=== PATIENT | female | born 1995 | race Caucasian/White ===

== ENCOUNTER 2023-01-05 19:18 | Outpatient (OUT) | payer OTHER, SELFPAY ==
--- NOTE | 2023-01-05 19:27 | US_ITS ---
The [address] [address] Patient Name: BESS BURLESON MRN: [id number] date: 1995 Sex: F Assigned Patient Location: US Current Patient Location: US Accession/Order Number: [id number] Exam Date: 01/05/2023 19:27 Report Date: 01/06/2023 15:35 At the request of: SHAYAN MAJOR Procedure: US OB incomplete anatomy EXAMINATION: US OB incomplete anatomy HISTORY: Z34.92 REPEAT TO CLEAR CARDIAC OUTFLOW, AND HARD PALATE COMPARISON: Ultrasound anatomy 12/08/2022 FINDINGS: Presentation: Cephalic Amniotic fluid: Subjectively normal Heart rate: 144 bpm Anatomy: Unremarkable cardiac outflow tracts. Hard palate could not be evaluated. GA: 25 weeks 3 days SHELLEY: 04/17/2023 IMPRESSION: 1. Single live intrauterine . 2. Adequate visualization of the cardiac outflow tracts; no appreciable abnormality. 3. Hard palate could not be evaluated due to position. Electronically authenticated by: ED SIMS Date: 01/06/2023 15:35
== END 2023-01-05 19:19 ==
PROVIDERS: Visit Provider Obstetrics & Gynecology
DX: Z34.92 Encounter for supervision of normal pregnancy, unspecified, second trimester (principal)
CPT/HCPCS: 76815

== ENCOUNTER 2023-01-25 15:41 | Outpatient (RCR) | payer OTHER, SELFPAY ==
[2023-01-23 13:23] LABS: Glucose 1 Hour 184 mg/dL
[2023-01-25 15:47] VITALS: BP 127/85; PULSE 105; RESP 16; TEMP 36.5; O2SAT 97
[2023-01-25] MEDS: RHO(D) IMMUNE GLOBULIN 1,500 UNIT SYRINGE 1500 UNIT IM (16:34)
--- NOTE | 2023-01-25 16:49 | PC.NURSE ---
Pt is here for RhoGam injection, she had blood work done today which confirmed she was A Negative, paperwork completed and injection given. Patient tolerated this well and denies any complaints, she was discharged home.
== END 2023-01-29 23:59 | disposition home or self-care (01) ==
LOC: INF 15:41
PROVIDERS: Visit Provider Obstetrics & Gynecology
DX: O26.893 Other specified pregnancy related conditions, third trimester (principal); Z67.91 Unspecified blood type, Rh negative
CPT/HCPCS: 36415; 82950; 86850; 86900; 86901; 96372; J2790

== ENCOUNTER 2023-01-30 10:09 | Outpatient (OUT) | payer OTHER, SELFPAY ==
[2023-01-30 10:36] LABS: Glucose Fasting 103 mg/dL (74-106)
[2023-01-30 11:51] LABS: Glucose 1 Hour 215 mg/dL
[2023-01-30 13:07] LABS: Glucose 2 Hour 178 mg/dL
[2023-01-30 14:16] LABS: Glucose 3 Hour 140 mg/dL
== END 2023-01-30 10:10 | disposition home or self-care (01) ==
LOC: LAB 10:09
PROVIDERS: Visit Provider Obstetrics & Gynecology
DX: R73.02 Impaired glucose tolerance (oral) (principal)
CPT/HCPCS: 36415; 82951; 82952

== ENCOUNTER 2023-02-16 14:37 | Outpatient (OUT) | payer OTHER, SELFPAY ==
--- NOTE | 2023-02-16 14:40 | US_ITS ---
[address] [address] Patient Name: BESS BURLESON MRN: [id number] date: 1995 Sex: F Assigned Patient Location: US Current Patient Location: US Accession/Order Number: [id number] Exam Date: 02/16/2023 14:41 Report Date: 02/16/2023 18:30 At the request of: SHAYAN MAJOR Procedure: US OB growth EXAMINATION: US OB growth HISTORY: GDM COMPARISON: No relevant comparison available. FINDINGS: #: 1.0 Presentation: Cephalic presentation, longitudinal lie Heart Rate: 153.0 bpm Amniotic Fluid Volume: 11.3 cm cm Maximum Vertical Pocket: 5.2 cm cm 0.0 cm cm 1.5 cm cm 4.6 cm cm BIOMETRY: BPD: 8.1 cm cm; 32 weeks 3 days, 71% HC: 30.5 cm cm; 33 weeks 6 days, 80% AC: 29.5 cm cm; 33 weeks 4 days, 94 % FL: 6.4 cm cm; 33 weeks 0 days, 78% EFW: 4 lbs. 12 oz., 2162 g pounds, 92%by AUA, FL/AC: 21.6 FL/BPD: 79.0 HC/AC: 1.0 GESTATIONAL AGE: SHELLEY by EDC: 31 weeks 3 days Age by EDC: 04/17/2023 Ultrasound Age: 33 weeks 2 days SHELLEY by US: 04/04/2023 US/US OB growth IMPRESSION: Normal interval growth Electronically authenticated by: BYRON ORTEGA Date: 02/16/2023 18:30
== END 2023-02-16 14:38 | disposition home or self-care (01) ==
LOC: US 14:37
PROVIDERS: Visit Provider Obstetrics & Gynecology
DX: Z86.32 Personal history of gestational diabetes (principal); Z36.2 Encounter for other antenatal screening follow-up
CPT/HCPCS: 76816

== ENCOUNTER 2023-02-25 15:41 | Outpatient (OUT) | payer OTHER, SELFPAY | END 2023-02-25 15:42 | disposition home or self-care (01) | LOC: CR 15:41 | PROVIDERS: Visit Provider Obstetrics & Gynecology | DX: Z71.3 Dietary counseling and surveillance (principal); O24.419 Gestational diabetes mellitus in pregnancy, unspecified control; Z3A.00 Weeks of gestation of pregnancy not specified | CPT/HCPCS: G0108 ==

== ENCOUNTER 2023-02-27 13:20 | Outpatient (OUT) | payer OTHER, SELFPAY ==
--- NOTE | 2023-02-27 13:37 | US_ITS ---
[address] [address] Patient Name: BESS BURLESON MRN: [id number] date: 1995 Sex: F Assigned Patient Location: US Current Patient Location: US Accession/Order Number: [id number] Exam Date: 02/27/2023 13:50 Report Date: 03/01/2023 15:53 At the request of: JOSE CRUZ WHITE Procedure: US OB BPP w non-stress EXAMINATION: US OB BPP w non-stress HISTORY: EXCESSIVE GROWTH AFFECTING O36.63X0 COMPARISON: Ultrasound OB growth 02/16/2023 TECHNIQUE: Ultrasound biophysical profile was performed in the radiology department. BREATHING MOVEMENTS: 2.0 GROSS BODY MOVEMENTS: 2.0 TONE: 2.0 QUALITATIVE AMNIOTIC FLUID VOLUME: 2.0 PRESENTATION: CEPHALIC HEART RATE: 142.1 bpm bpm. AMNIOTIC FLUID VOLUME: 14.0 cm GESTATIONAL AGE: 33 weeks 0 days CONCLUSION: Total biophysical profile score 8.0. Electronically authenticated by: ED SIMS Date: 03/01/2023 15:53
[2023-02-27 13:38] VITALS: BP 120/90; PULSE 95; TEMP 36.1
== END 2023-02-27 14:31 | disposition home or self-care (01) ==
LOC: US 13:24 → FBC 13:25
PROVIDERS: Visit Provider Obstetrics & Gynecology
DX: O36.63X0 Maternal care for excessive fetal growth, third trimester, not applicable or unspecified (principal); Z3A.33 33 weeks gestation of pregnancy
CPT/HCPCS: 76818

== ENCOUNTER 2023-03-04 10:46 | Outpatient (OUT) | payer OTHER, SELFPAY ==
--- NOTE | 2023-03-04 10:48 | US_ITS ---
[address] [address] Patient Name: BESS BURLESON MRN: [id number] date: 1995 Sex: F Assigned Patient Location: US Current Patient Location: US Accession/Order Number: [id number] Exam Date: 03/04/2023 10:55 Report Date: 03/04/2023 19:09 At the request of: SHAYAN MAJOR Procedure: US OB growth EXAMINATION: US OB growth HISTORY: EXCESSIVE GROWTH O36.63X0 COMPARISON: Ultrasound OB growth 02/16/2023 FINDINGS: Heart Rate: 165.0 bpm Number: 1.0 Position: CEPHALIC Amniotic Fluid Volume: 14.5 cm Maximum Vertical Pocket: 8.1 cm BIOMETRY: BPD: 8.6 cm cm; 34 weeks 3 days; 69% HC: 31.8 cmcm; 35 weeks 5 days; 66% AC: 32.2 cm cm; 36 weeks 1 days; >97% FL: 6.8 cm cm; 35 weeks 0 days; 75% EFW: 2721.9 grams; 92% FL/AC: 21.2 FL/BPD: 79.8 HC/AC: 1.0 GESTATIONAL AGE: Age by EDC: 33 weeks 5 days SHELLEY by EDC: 04/17/2023 Age by US: 35 weeks 2 days SHELLEY by US: 04/06/2023 US/US OB growth IMPRESSION: 1. Single live intrauterine with growth detailed above. 2. Abdominal circumference is greater than 97th percentile. Electronically authenticated by: ED SIMS Date: 03/04/2023 19:09
== END 2023-03-04 10:47 | disposition home or self-care (01) ==
LOC: US 10:46
PROVIDERS: Visit Provider Obstetrics & Gynecology
DX: O36.63X0 Maternal care for excessive fetal growth, third trimester, not applicable or unspecified (principal); Z86.32 Personal history of gestational diabetes; Z36.2 Encounter for other antenatal screening follow-up; Z3A.35 35 weeks gestation of pregnancy
CPT/HCPCS: 76816

== ENCOUNTER 2023-03-06 13:09 | Outpatient (OUT) | payer OTHER, SELFPAY ==
--- NOTE | 2023-03-06 13:05 | US_ITS ---
[address] [address] Patient Name: BESS BURLESON MRN: [id number] date: 1995 Sex: F Assigned Patient Location: US Current Patient Location: Accession/Order Number: [id number] Exam Date: 03/06/2023 13:06 Report Date: 03/08/2023 16:23 At the request of: SHAYAN MAJOR Procedure: US OB BPP w non-stress EXAMINATION: US OB BPP w non-stress HISTORY: Excessive growth COMPARISON: Ultrasound OB biophysical 02/27/2023 TECHNIQUE: Ultrasound biophysical profile was performed in the radiology department. BREATHING MOVEMENTS: 2.0 GROSS BODY MOVEMENTS: 2.0 TONE: 2.0 QUALITATIVE AMNIOTIC FLUID VOLUME: 2.0 PRESENTATION: CEPHALIC HEART RATE: 166.7 bpm bpm. AMNIOTIC FLUID VOLUME: 13.6 cm GESTATIONAL AGE: 34 weeks 0 days CONCLUSION: Total biophysical profile score 8.0. Electronically authenticated by: ED SIMS Date: 03/08/2023 16:23
[2023-03-06 13:26] VITALS: BP 123/58; PULSE 97
== END 2023-03-06 14:09 | disposition home or self-care (01) ==
LOC: US 13:09 → FBC 13:09
PROVIDERS: Visit Provider Obstetrics & Gynecology
DX: O36.63X0 Maternal care for excessive fetal growth, third trimester, not applicable or unspecified (principal); Z3A.34 34 weeks gestation of pregnancy
CPT/HCPCS: 76818

== ENCOUNTER 2023-03-13 07:45 | Outpatient (OUT) | payer OTHER, SELFPAY ==
--- NOTE | 2023-03-13 12:51 | US_ITS ---
[address] [address] Patient Name: BESS BURLESON MRN: [id number] date: 1995 Sex: F Assigned Patient Location: US Current Patient Location: US Accession/Order Number: [id number] Exam Date: 03/13/2023 13:00 Report Date: 03/14/2023 02:06 At the request of: SHAYAN MAJOR Procedure: US OB BPP w non-stress EXAMINATION: US OB BPP w non-stress HISTORY: Excessive growth in third trimester O36.63X0 COMPARISON: Ultrasound biophysical 03/06/2023 TECHNIQUE: Ultrasound biophysical profile was performed in the radiology department. BREATHING MOVEMENTS: 2.0 GROSS BODY MOVEMENTS: 2.0 TONE: 2.0 QUALITATIVE AMNIOTIC FLUID VOLUME: 2.0 PRESENTATION: Cephalic HEART RATE: 158.8 bpm bpm. AMNIOTIC FLUID VOLUME: 12.3 cm GESTATIONAL AGE: 35 weeks 0 days CONCLUSION: Total biophysical profile score 8.0. Electronically authenticated by: ED SIMS Date: 03/14/2023 02:06
[2023-03-13 13:20] VITALS: BP 118/68; PULSE 95
== END 2023-03-13 13:49 | disposition home or self-care (01) ==
LOC: US 07:49 → FBC 13:02
PROVIDERS: Visit Provider Obstetrics & Gynecology Gynecology
DX: O36.63X0 Maternal care for excessive fetal growth, third trimester, not applicable or unspecified (principal); Z86.32 Personal history of gestational diabetes; Z3A.35 35 weeks gestation of pregnancy
CPT/HCPCS: 76818

== ENCOUNTER 2023-03-24 12:09 | Outpatient (REF) | payer OTHER, SELFPAY | END 2023-03-24 12:10 | disposition home or self-care (01) | LOC: LAB 12:09 | PROVIDERS: Visit Provider Obstetrics & Gynecology | DX: Z34.93 Encounter for supervision of normal pregnancy, unspecified, third trimester (principal) | CPT/HCPCS: 87081 ==

== ENCOUNTER 2023-03-27 13:00 | Outpatient (OUT) | payer OTHER, SELFPAY ==
--- NOTE | 2023-03-27 13:16 | US_ITS ---
[address] [address] Patient Name: BESS BURLESON MRN: [id number] date: 1995 Sex: F Assigned Patient Location: [facility] Current Patient Location: Accession/Order Number: [id number] Exam Date: 03/27/2023 13:20 Report Date: 03/29/2023 08:18 At the request of: SHAYAN MAJOR Procedure: US OB BPP w non-stress EXAMINATION: US OB BPP w non-stress HISTORY: gestational diabetes COMPARISON: No relevant comparison available. TECHNIQUE: Ultrasound biophysical profile was performed in the radiology department. FINDINGS: BREATHING MOVEMENTS: 2.0 GROSS BODY MOVEMENTS: 2.0 TONE: 2.0 QUALITATIVE AMNIOTIC FLUID VOLUME: 2.0 PRESENTATION: CEPHALIC HEART RATE: 135.7 bpm H.B./min AMNIOTIC FLUID VOLUME: 13.7 cm cm GESTATIONAL AGE: 37 weeks 0 days CONCLUSION: Total biophysical profile score: 8.0 Electronically authenticated by: BYRON ORTEGA Date: 03/29/2023 08:18
[2023-03-27 14:02] VITALS: BP 114/79; PULSE 89
== END 2023-03-27 14:35 | disposition home or self-care (01) ==
LOC: US 13:14 → FBC 13:14
PROVIDERS: Visit Provider Obstetrics & Gynecology
DX: O24.419 Gestational diabetes mellitus in pregnancy, unspecified control (principal); Z3A.37 37 weeks gestation of pregnancy
CPT/HCPCS: 59025; 76818

== ENCOUNTER 2023-04-05 05:10 | Inpatient (IN) | payer OTHER, SELFPAY ==
[2023-04-05] VITALS (40 sets, daily range): BP systolic 107–154; BP diastolic 59–116; PULSE 79–113; RESP 16; TEMP 35.8–36.6
[2023-04-05 06:02] LABS: Hematocrit 30.1 % (36.0-48.0); Hemoglobin 10.4 g/dL (12.0-16.0); Mean Corpuscular HGB Conc 34.6 g/dL (29.9-35.2); Mean Corpuscular Volume 89.6 fL (81.0-99.0); Mean Platelet Volume 10.7 fL (9.5-13.5); Platelet Count 225 10^3/uL (150-450); Red Blood Count 3.36 10^6/uL (4.20-5.40); Red Cell Distribution Width 13.7 % (11.0-15.0); White Blood Count 9.6 10^3/uL (4.0-11.0)
[2023-04-05 06:13] LABS: Amphetamine Screen Urine NEGATIVE (NEGATIVE); Barbiturates Screen Urine NEGATIVE (NEGATIVE); Benzodiazepines Screen Urine NEGATIVE (NEGATIVE); Buprenorphine Screen Urine NEGATIVE (NEGATIVE); Cannabinoid Screen Urine NEGATIVE (NEGATIVE); Cocaine Screen Urine NEGATIVE (NEGATIVE); Methadone Screen Urine NEGATIVE (NEGATIVE); Methamphetamines Screen Urine NEGATIVE (NEGATIVE); Opiate Screen Urine NEGATIVE (NEGATIVE); Oxycodone Screen Urine NEGATIVE (NEGATIVE); Phencyclidine Screen Urine NEGATIVE (NEGATIVE); Tricyclic Antidepressant Urine NEGATIVE (NEGATIVE)
[2023-04-05] MEDS: 0.9 % SODIUM CHLORIDE 1,000 ML 125 ML IV (06:31)
[2023-04-05] MEDS: OXYTOCIN/0.9 % SODIUM CHLORIDE 10 UNITS/500 ML PLAST..BAG 6 UNIT IV (06:41)
--- NOTE | 2023-04-05 07:38 | W.PC.ACHO ---
Registration Status: ADM IN Primary Language: Citizen Of [place] Preferred Language: Citizen Of [place] Active Medications 0730- Report given to Alexsander Loco RN Generic Name Dose Route Start Last Admin Trade Name Abram PRN Reason Stop Dose Admin Carboprost Tromethamine 250 mcg 04/05/23 05:11 Carboprost Tromethamine 250 Mcg/Ml 1 Ml Vial IM 04/07/23 05:11 Q15M PRN Bleeding Sodium Chloride 1,000 mls @ 125 mls/hr 04/05/23 05:15 04/05/23 06:31 Sodium Chloride 0.9% 1,000 Ml IV 125 mls/hr .Q8H MARIN Administration Oxytocin/Sodium Chloride 10 units in 500 mls @ 6 mls/hr 04/05/23 05:15 04/05/23 06:41 Pitocin 10 Unit/500 Ml-Ns IV 2 milliunit/min Q24H MARIN 6 mls/hr Administration Protocol 2 MILLIUNIT/MIN Oxytocin/Sodium Chloride 20 units in 1,000 mls @ 125 mls/hr 04/05/23 06:15 Pitocin 20 Unit/1,000 Ml-Ns IV 04/05/23 14:14 Q8H PRN Delivery Protocol Lidocaine 5 ml 04/05/23 05:11 Lidocaine Viscous 2% 15 Ml Topical Solution TOPICAL .PRN PRN Pain Lidocaine 1 ml 04/05/23 05:11 Lidocaine Hcl 1% 200 Mg/20 Ml Mdv INJ .PRN PRN Pain Methylergonovine Maleate 0.2 mg 04/05/23 05:11 Methylergonovine Maleate 0.2 Mg Tablet PO 04/07/23 05:11 Q4H PRN Uterine Contractility/Contract Methylergonovine Maleate 0.2 mg 04/05/23 05:11 Methylergonovine Maleate 0.2 Mg/Ml Ampule IM 04/07/23 05:11 ONCE PRN Uterine Contractility/Contract Misoprostol 600 mcg 04/05/23 05:11 Misoprostol 100 Mcg Tablet PO 04/07/23 05:11 ONCE PRN Uterine Bleeding Misoprostol 800 mcg 04/05/23 05:11 Misoprostol 100 Mcg Tablet SL 04/07/23 05:11 ONCE PRN Uterine Bleeding Misoprostol 1,000 mcg 04/05/23 05:11 Misoprostol 100 Mcg Tablet AL 04/07/23 05:11 ONCE PRN Uterine Bleeding Ondansetron HCl 4 mg 04/05/23 05:11 Ondansetron Pf 4 Mg/2 Ml Vial IV Q6H PRN Nausea And Vomiting Ondansetron HCl 4 mg 04/05/23 05:11 Ondansetron 4 Mg Rapdis Tablet SL Q6H PRN Nausea And Vomiting Oxytocin 10 unit 04/05/23 05:11 Oxytocin 10 Unit/Ml Vial IM 04/07/23 05:11 ONCE PRN PPH Diet Category Date Time Status Regular Consistency Diet Diet 04/05/23 Breakfast Active IV Insertion/Site Date of IV Line Insertion [20g 04/05/23 right Forearm] IV Insertion Time [20g right 05:55 Forearm] Neurology Patient orientation (short person,place,time,situation list) Respiratory Oxygen Delivery Method Room Air
--- NOTE | 2023-04-05 09:54 | P.OBHP_ITS ---
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 History of Present Dating criteria: LMP confirmed by 1st trimester US care: good care Ultrasounds: normal 1st trimester US complications: preeclampsia Medical complications OB: none Labs Blood type: A (-) negative Rubella: nonimmune RPR/VDLR: nonreactive GBS status: negative HBsAG: negative Review of Systems ROS Status of ROS 10 or more systems reviewed and unremarkable except as noted in history and below [facility] Medical History (Updated 04/05/23 @ 06:11 by Calista Hopkins RN) Surgical History Family History Grandmother Family history of diabetes mellitus Social History Within the past year, how often did you have a drink containing alcohol: never Score interpretation: A score less than 3 is consistent with normal alcohol consumption. Smoking status: Former smoker Non-prescribed substance use: cannabis (any form) Meds Home Medications and Allergies Allergies Allergy/AdvReac Type Severity Reaction Status Date / Time No Known Drug Allergies Allergy Verified 02/27/23 14:03 Exam Constitutional Vital Signs, click to edit/add: Last Vital Signs Temp 97.9 F 04/05/23 05:25 Pulse 83 04/05/23 09:45 Resp 16 04/05/23 05:25 BP 121/70 04/05/23 09:45 O2 Del Method Room Air 04/05/23 05:25 Documenting provider has reviewed patient's vital signs: yes Common normals: no apparent distress Respiratory Common normals: normal respiratory effort and clear to auscultation bilaterally Cardio Common normals: regular rate and regular rhythm GI Common normals: Normal to inspection, nondistended, normoactive bowel sounds present Extremity Common normals: no clubbing, cyanosis or edema and no calf tenderness Results Labs Labs: Short CBC 04/05/23 Range/Units 05:55 WBC 9.6 (4.0-11.0) 10^3/uL Hgb 10.4 L (12.0-16.0) g/dL Hct 30.1 L (36.0-48.0) % Plt Count 225 (150-450) 10^3/uL OB - A/P Assessment and Plan (1) Gestational diabetes mellitus: (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
[2023-04-05] MEDS: 0.9 % SODIUM CHLORIDE 1,000 ML 1000 ML IV (10:51)
[2023-04-05] MEDS: ROPIVACAINE HCL/PF 400 MG/200 ML PREMIX 10 MG EPIDURAL (11:50)
[2023-04-05] MEDS: FENTANYL CITRATE/PF 100 MCG/2 ML VIAL EPIDURAL (11:52)
--- NOTE | 2023-04-05 14:38 | PM.OBPRCVD ---
Procedure events: No Care Intrapartal events: None Induction method: per pitocin protocol Delivery augmentation: rupture of membranes and pitocin Delivery monitor: external FHT and external uterine Route of delivery: Laceration description: none Estimated blood loss (mL): 200 Anesthesia type: Epidural Disposition: PACU Delivery date: 04/05/23 Gender: male presentation: vertex Placental delivery description: Spontaneous cord description: 3 Vessels and Nuchal Cord
--- NOTE | 2023-04-05 18:57 | PC.NURSE ---
1835: EPIDURAL CATHETER REMOVED WITH TIP INTACT AND SITE SECURED WITH BANDAID. ECCHYMOTIC AREA- APPROXIMATED 3 X3 NOTED ABOVE CATHETER INSERTION SITE
--- NOTE | 2023-04-05 19:19 | W.PC.ACHO ---
Registration Status: ADM IN Primary Language: Tongan Preferred Language: Tongan Active Medications Generic Name Dose Route Start Last Admin Trade Name Freq PRN Reason Stop Dose Admin Acetaminophen 650 mg 04/05/23 14:41 Acetaminophen 325 Mg Tablet PO Q6H PRN Mild Pain Al Hydroxide/Mg Hydroxide 2,400 mg 04/05/23 14:41 Magnesium Hydroxide 2,400 Mg/10 Ml Oral.Susp PO Q6H PRN Dyspepsia Benzocaine/Menthol 1 applic 04/05/23 14:41 Benzocaine/Menthol 85 Gram Ladd Bottle TOPICAL Q2H PRN Pain Carboprost Tromethamine 250 mcg 04/05/23 05:11 Carboprost Tromethamine 250 Mcg/Ml 1 Ml Vial IM 04/06/23 15:00 Q15M PRN Bleeding Diphtheria/Pertussis/Tetanus Vacc 0.5 ml 04/07/23 09:00 Adacel Diph,Pertuss(Acell),Tet Vac/Pf 0.5 Ml Adult Syringe IM 04/07/23 09:01 .ONCE ONE Docusate Sodium 100 mg 04/06/23 09:00 Docusate Sodium 100 Mg Capsule PO BID MARIN Sodium Chloride 1,000 mls @ 125 mls/hr 04/05/23 05:15 04/05/23 06:31 Sodium Chloride 0.9% 1,000 Ml IV 125 mls/hr .Q8H MARIN Administration Oxytocin 20 unit/ Sodium 1,002 mls @ 125 mls/hr 04/05/23 14:45 04/05/23 15:08 Chloride IV 04/05/23 22:44 125 mls/hr Q8H MARIN 125 mls/hr Administration Ibuprofen 600 mg 04/05/23 14:41 Ibuprofen 600 Mg Tablet PO Q6H PRN Moderate Pain Measles/Mumps/Rubella Vaccine Live 0.5 ml 04/07/23 09:00 Measles,Mumps,Rubella Vacc/Pf 0.5 Ml Vial SQ 04/07/23 09:01 .ONCE ONE Methylergonovine Maleate 0.2 mg 04/05/23 05:11 Methylergonovine Maleate 0.2 Mg Tablet PO 04/06/23 15:00 Q4H PRN Uterine Contractility/Contract Methylergonovine Maleate 0.2 mg 04/05/23 05:11 Methylergonovine Maleate 0.2 Mg/Ml Ampule IM 04/06/23 15:00 ONCE PRN Uterine Contractility/Contract Misoprostol 600 mcg 04/05/23 05:11 Misoprostol 100 Mcg Tablet PO 04/06/23 15:00 ONCE PRN Uterine Bleeding Misoprostol 800 mcg 04/05/23 05:11 Misoprostol 100 Mcg Tablet SL 04/06/23 15:00 ONCE PRN Uterine Bleeding Misoprostol 1,000 mcg 04/05/23 05:11 Misoprostol 100 Mcg Tablet CA 04/06/23 15:00 ONCE PRN Uterine Bleeding Ondansetron HCl 4 mg 04/05/23 05:11 Ondansetron Pf 4 Mg/2 Ml Vial IV Q6H PRN Nausea And Vomiting Ondansetron HCl 4 mg 04/05/23 05:11 Ondansetron 4 Mg Rapdis Tablet SL Q6H PRN Nausea And Vomiting Oxytocin 10 unit 04/05/23 05:11 Oxytocin 10 Unit/Ml Vial IM 04/05/23 23:00 ONCE PRN PPH Senna 17.2 mg 04/05/23 20:00 Sennosides 8.6 Mg Tablet PO QHS PRN Constipation Simethicone 80 mg 04/05/23 14:41 Simethicone 80 Mg Tab.Chew PO QID PRN Abdominal Distention Temazepam 15 mg 04/05/23 14:41 Temazepam 15 Mg Capsule PO QHS PRN Sleep Witch Cathy/Glycerin 1 pad 04/05/23 14:41 Glycerin/Witch Cathy Pads TOPICAL Q2H PRN Pain Diet Category Date Time Status Regular Consistency Diet Diet 04/05/23 Dinner Active Consults Category Date Time Status Consult to Loom Operator Apprentice Routine Cons 04/05/23 Ordered IV Insertion/Site Date of IV Line Insertion [20g 04/05/23 right Forearm] IV Insertion Time [20g right 05:55 Forearm] Neurology Patient orientation (short person,place,time,situation list) Respiratory Oxygen Delivery Method Room Air Catheter Date Urinary Catheter Removed 04/05/23
[2023-04-06 00:05] VITALS: TEMP 37.1
[2023-04-06] MEDS: IBUPROFEN 600 MG TABLET PO ×4 (00:05→23:27)
[2023-04-06 00:07] VITALS: BP 108/67; PULSE 86
[2023-04-06 05:45] LABS: Basophils Percent Auto 0.3 % (0.2-2.0); Eosinophils Absolute Auto 0.1 10^3/uL (0.0-0.7); Eosinophils Percent Auto 0.5 % (0.9-7.0); Hemoglobin 8.7 g/dL (12.0-16.0); Immature Granulocytes Abs Auto 0.06 10^3/uL (0.00-0.03); Immature Granulocytes Pct Auto 0.6 % (0.0-0.5); Lymphocytes Absolute Auto 2.3 10^3/uL (1.2-3.8); Lymphocytes Percent Auto 22.4 % (20.5-60.0); Mean Corpuscular HGB Conc 33.5 g/dL (29.9-35.2); Mean Corpuscular Hemoglobin 31.1 pg (26.7-34.0); Mean Corpuscular Volume 92.9 fL (81.0-99.0); Mean Platelet Volume 10.5 fL (9.5-13.5); Monocytes Absolute Auto 0.7 10^3/uL (0.3-0.8); Monocytes Percent Auto 7.4 % (1.7-12.0); Neutrophils Absolute Auto 6.9 10^3/uL (1.4-6.5); Neutrophils Percent Auto 68.8 % (43.0-75.0); Platelet Count 181 10^3/uL (150-450); Red Cell Distribution Width 13.7 % (11.0-15.0); White Blood Count 10.1 10^3/uL (4.0-11.0)
--- NOTE | 2023-04-06 07:27 | W.PC.ACHO ---
Registration Status: ADM IN Primary Language: Bol[place]ian Preferred Language: Bol[place]ian Active Medications Generic Name Dose Route Start Last Admin Trade Name Freq PRN Reason Stop Dose Admin Acetaminophen 650 mg 04/05/23 14:41 Acetaminophen 325 Mg Tablet PO Q6H PRN Mild Pain Al Hydroxide/Mg Hydroxide 2,400 mg 04/05/23 14:41 Magnesium Hydroxide 2,400 Mg/10 Ml Oral.Susp PO Q6H PRN Dyspepsia Benzocaine/Menthol 1 applic 04/05/23 14:41 Benzocaine/Menthol 85 Gram [place] Bottle TOPICAL Q2H PRN Pain Carboprost Tromethamine 250 mcg 04/05/23 05:11 Carboprost Tromethamine 250 Mcg/Ml 1 Ml Vial IM 04/06/23 15:00 Q15M PRN Bleeding Diphtheria/Pertussis/Tetanus Vacc 0.5 ml 04/07/23 09:00 Adacel Diph,Pertuss(Acell),Tet Vac/Pf 0.5 Ml Adult Syringe IM 04/07/23 09:01 .ONCE ONE Docusate Sodium 100 mg 04/06/23 09:00 Docusate Sodium 100 Mg Capsule PO BID MARIN Sodium Chloride 1,000 mls @ 125 mls/hr 04/05/23 05:15 04/05/23 06:31 Sodium Chloride 0.9% 1,000 Ml IV 125 mls/hr .Q8H MARIN Administration Ibuprofen 600 mg 04/05/23 14:41 04/06/23 00:05 Ibuprofen 600 Mg Tablet PO 600 mg Q6H PRN Administration Moderate Pain Measles/Mumps/Rubella Vaccine Live 0.5 ml 04/07/23 09:00 Measles,Mumps,Rubella Vacc/Pf 0.5 Ml Vial SQ 04/07/23 09:01 .ONCE ONE Methylergonovine Maleate 0.2 mg 04/05/23 05:11 Methylergonovine Maleate 0.2 Mg Tablet PO 04/06/23 15:00 Q4H PRN Uterine Contractility/Contract Methylergonovine Maleate 0.2 mg 04/05/23 05:11 Methylergonovine Maleate 0.2 Mg/Ml Ampule IM 04/06/23 15:00 ONCE PRN Uterine Contractility/Contract Misoprostol 600 mcg 04/05/23 05:11 Misoprostol 100 Mcg Tablet PO 04/06/23 15:00 ONCE PRN Uterine Bleeding Misoprostol 800 mcg 04/05/23 05:11 Misoprostol 100 Mcg Tablet SL 04/06/23 15:00 ONCE PRN Uterine Bleeding Misoprostol 1,000 mcg 04/05/23 05:11 Misoprostol 100 Mcg Tablet AL 04/06/23 15:00 ONCE PRN Uterine Bleeding Ondansetron HCl 4 mg 04/05/23 05:11 Ondansetron Pf 4 Mg/2 Ml Vial IV Q6H PRN Nausea And Vomiting Ondansetron HCl 4 mg 04/05/23 05:11 Ondansetron 4 Mg Rapdis Tablet SL Q6H PRN Nausea And Vomiting Senna 17.2 mg 04/05/23 20:00 Sennosides 8.6 Mg Tablet PO QHS PRN Constipation Simethicone 80 mg 04/05/23 14:41 Simethicone 80 Mg Tab.Chew PO QID PRN Abdominal Distention Temazepam 15 mg 04/05/23 14:41 Temazepam 15 Mg Capsule PO QHS PRN Sleep Witch Cathy/Glycerin 1 pad 04/05/23 14:41 Glycerin/Witch Cathy Pads TOPICAL Q2H PRN Pain Diet Category Date Time Status Regular Consistency Diet Diet 04/05/23 Dinner Active Respiratory Oxygen Delivery Method Room Air Catheter Date Urinary Catheter Removed 04/05/23
--- NOTE | 2023-04-06 08:50 | P.OBPN_ITS ---
OB - PN: Subj Subjective Patient comments: no complaints [place] status: doing well Exam Constitutional Vital Signs, click to edit/add: Last Vital Signs Temp 98.8 F 04/06/23 00:05 Pulse 86 04/06/23 00:07 Resp 16 04/05/23 12:11 BP 108/67 04/06/23 00:07 O2 Del Method Room Air 04/06/23 00:05 Documenting provider has reviewed patient's vital signs: yes Common normals: no apparent distress Respiratory Common normals: clear to auscultation bilaterally Cardio Common normals: regular rate and regular rhythm GI Common normals: Normal to inspection, nondistended, normoactive bowel sounds present Extremity Common normals: no clubbing, cyanosis or edema and no calf tenderness Results Labs Labs: Short CBC 04/06/23 Range/Units 05:38 WBC 10.1 (4.0-11.0) 10^3/uL Hgb 8.7 L (12.0-16.0) g/dL Hct 26.0 L (36.0-48.0) % Plt Count 181 (150-450) 10^3/uL OB - PN: A/P Assessment and Plan (1) Gestational diabetes mellitus: (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
[2023-04-06 09:25] VITALS: BP 98/59; PULSE 75; RESP 16; TEMP 36.5
[2023-04-06] MEDS: DOCUSATE SODIUM 100 MG CAPSULE PO ×2 (09:30→21:33)
--- NOTE | 2023-04-06 10:32 | SWNOTE1 ---
SW consulted due to drug use. Pt was positive for marijuana on 09/11/22 at her first OB appointment. SW spoke with nursing and there was mention of opiate use, but pt denies and had contacted doctor's office asking for the test showing positive. Doctor could not provide and pt had asked the doctor's office to remove history of opiate use from chart as pt did not use opiates. SW and nursing reviewed the chart and opiate use was not indicated anywhere on pt's chart. SW spoke with pt. Pt and baby doing well. She does have everything she needs at home for baby. Pt is and it is going alright, just hurts. Father of baby is involved and they do live together. They have a 4 year old son as well. She voiced she has good support as well at home. SW did address the marijuana. Pt stopped using marijuana once she found out she was and went to first appointment. Pt does not plan on using anymore. SW did ask her about opiate use, she denied any kind of opiate use and had to look up what opiates were. She saw through her portal that it stated history of opiate use and she called the doctor. She asked them for proof of positive opiate drug screen and they could not provide. She stated the nurse told her on the phone that marijuana was opiate. Pt asked for the opiate use to be removed from her chart. She does think it has been removed. Pt is caring for baby appropriately and bonding with baby. No concerns at this time. Cord was sent. SW is not calling CPS at this time, if cord comes back positive for anything, SW to call report.
[2023-04-06 17:13] VITALS: BP 121/78; PULSE 75
[2023-04-06 17:21] VITALS: RESP 16; TEMP 36.7
--- NOTE | 2023-04-06 19:19 | W.PC.ACHO ---
Registration Status: ADM IN Primary Language: Macanese Preferred Language: Macanese Active Medications Generic Name Dose Route Start Last Admin Trade Name Freq PRN Reason Stop Dose Admin Acetaminophen 650 mg 04/05/23 14:41 Acetaminophen 325 Mg Tablet PO Q6H PRN Mild Pain Al Hydroxide/Mg Hydroxide 2,400 mg 04/05/23 14:41 Magnesium Hydroxide 2,400 Mg/10 Ml Oral.Susp PO Q6H PRN Dyspepsia Benzocaine/Menthol 1 applic 04/05/23 14:41 Benzocaine/Menthol 85 Gram [place] Bottle TOPICAL Q2H PRN Pain Diphtheria/Pertussis/Tetanus Vacc 0.5 ml 04/07/23 09:00 Adacel Diph,Pertuss(Acell),Tet Vac/Pf 0.5 Ml Adult Syringe IM 04/07/23 09:01 .ONCE ONE Docusate Sodium 100 mg 04/06/23 09:00 04/06/23 09:30 Docusate Sodium 100 Mg Capsule PO 100 mg BID MARIN Administration Sodium Chloride 1,000 mls @ 125 mls/hr 04/05/23 05:15 04/05/23 06:31 Sodium Chloride 0.9% 1,000 Ml IV 125 mls/hr .Q8H MARIN Administration Ibuprofen 600 mg 04/05/23 14:41 04/06/23 17:15 Ibuprofen 600 Mg Tablet PO 600 mg Q6H PRN Administration Moderate Pain Measles/Mumps/Rubella Vaccine Live 0.5 ml 04/07/23 09:00 Measles,Mumps,Rubella Vacc/Pf 0.5 Ml Vial SQ 04/07/23 09:01 .ONCE ONE Ondansetron HCl 4 mg 04/05/23 05:11 Ondansetron Pf 4 Mg/2 Ml Vial IV Q6H PRN Nausea And Vomiting Ondansetron HCl 4 mg 04/05/23 05:11 Ondansetron 4 Mg Rapdis Tablet SL Q6H PRN Nausea And Vomiting Senna 17.2 mg 04/05/23 20:00 Sennosides 8.6 Mg Tablet PO QHS PRN Constipation Simethicone 80 mg 04/05/23 14:41 Simethicone 80 Mg Tab.Chew PO QID PRN Abdominal Distention Temazepam 15 mg 04/05/23 14:41 Temazepam 15 Mg Capsule PO QHS PRN Sleep Witch Cathy/Glycerin 1 pad 04/05/23 14:41 Glycerin/Witch Cathy Pads TOPICAL Q2H PRN Pain Respiratory Oxygen Delivery Method Room Air Oxygen Delivery Method Room Air
[2023-04-06 23:31] VITALS: BP 115/80; PULSE 72
--- NOTE | 2023-04-06 23:38 | PC.NURSE ---
2338: pt worried infant is unsettled with . RN reassures patient that this is normal and breastfed infants cluster feed at times. RN explains size of infants stomach. RN and patient discuss whether patient wants to try to put to breast or to pump. patient decides to feed infant at this time. RN assists with latch. patient states she is sore but is not in pain after RN flares infants bottom lip out.
[2023-04-07] VITALS (7 sets, daily range): BP systolic 117–121; BP diastolic 69–82; PULSE 74–83; RESP 18; TEMP 36.9–37.1
[2023-04-07] MEDS: IBUPROFEN 600 MG TABLET PO ×2 (06:48→12:43)
--- NOTE | 2023-04-07 07:44 | P.OBPN_ITS ---
OB - PN: Subj Subjective Patient comments: no complaints and pain well controlled [place] status: doing well Exam Constitutional Vital Signs, click to edit/add: Last Vital Signs Temp 98.8 F 04/07/23 00:30 Pulse 72 04/06/23 23:31 Resp 16 04/06/23 17:21 BP 115/80 04/06/23 23:31 O2 Del Method Room Air 04/06/23 23:25 Documenting provider has reviewed patient's vital signs: yes Common normals: no apparent distress Respiratory Common normals: normal respiratory effort and clear to auscultation bilaterally Cardio Common normals: regular rate and regular rhythm GI Common normals: Normal to inspection, nondistended, normoactive bowel sounds present Extremity Common normals: no clubbing, cyanosis or edema and no calf tenderness OB - PN: A/P Assessment and Plan (1) Gestational diabetes mellitus: (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
--- NOTE | 2023-04-07 08:29 | W.PC.ACHO ---
Registration Status: ADM IN Primary Language: Belgian Preferred Language: Belgian Active Medications Generic Name Dose Route Start Last Admin Trade Name Freq PRN Reason Stop Dose Admin Acetaminophen 650 mg 04/05/23 14:41 Acetaminophen 325 Mg Tablet PO Q6H PRN Mild Pain Al Hydroxide/Mg Hydroxide 2,400 mg 04/05/23 14:41 Magnesium Hydroxide 2,400 Mg/10 Ml Oral.Susp PO Q6H PRN Dyspepsia Benzocaine/Menthol 1 applic 04/05/23 14:41 Benzocaine/Menthol 85 Gram [place] Bottle TOPICAL Q2H PRN Pain Diphtheria/Pertussis/Tetanus Vacc 0.5 ml 04/07/23 09:00 Adacel Diph,Pertuss(Acell),Tet Vac/Pf 0.5 Ml Adult Syringe IM 04/07/23 09:01 .ONCE ONE Docusate Sodium 100 mg 04/06/23 09:00 04/06/23 21:33 Docusate Sodium 100 Mg Capsule PO 100 mg BID MARIN Administration Sodium Chloride 1,000 mls @ 125 mls/hr 04/05/23 05:15 04/05/23 06:31 Sodium Chloride 0.9% 1,000 Ml IV 125 mls/hr .Q8H MARIN Administration Ibuprofen 600 mg 04/05/23 14:41 04/07/23 06:48 Ibuprofen 600 Mg Tablet PO 600 mg Q6H PRN Administration Moderate Pain Measles/Mumps/Rubella Vaccine Live 0.5 ml 04/07/23 09:00 Measles,Mumps,Rubella Vacc/Pf 0.5 Ml Vial SQ 04/07/23 09:01 .ONCE ONE Ondansetron HCl 4 mg 04/05/23 05:11 Ondansetron Pf 4 Mg/2 Ml Vial IV Q6H PRN Nausea And Vomiting Ondansetron HCl 4 mg 04/05/23 05:11 Ondansetron 4 Mg Rapdis Tablet SL Q6H PRN Nausea And Vomiting Senna 17.2 mg 04/05/23 20:00 Sennosides 8.6 Mg Tablet PO QHS PRN Constipation Simethicone 80 mg 04/05/23 14:41 Simethicone 80 Mg Tab.Chew PO QID PRN Abdominal Distention Temazepam 15 mg 04/05/23 14:41 Temazepam 15 Mg Capsule PO QHS PRN Sleep Witch Cathy/Glycerin 1 pad 04/05/23 14:41 Glycerin/Witch Cathy Pads TOPICAL Q2H PRN Pain Respiratory Oxygen Delivery Method Room Air Oxygen Delivery Method Room Air
--- NOTE | 2023-04-07 09:07 | W.PC.ACHO ---
Registration Status: ADM IN Primary Language: Cuban Preferred Language: Cuban report received from Jose Miguel meléndez RN Active Medications Generic Name Dose Route Start Last Admin Trade Name Freq PRN Reason Stop Dose Admin Acetaminophen 650 mg 04/05/23 14:41 Acetaminophen 325 Mg Tablet PO Q6H PRN Mild Pain Al Hydroxide/Mg Hydroxide 2,400 mg 04/05/23 14:41 Magnesium Hydroxide 2,400 Mg/10 Ml Oral.Susp PO Q6H PRN Dyspepsia Benzocaine/Menthol 1 applic 04/05/23 14:41 Benzocaine/Menthol 85 Gram [place] Bottle TOPICAL Q2H PRN Pain Docusate Sodium 100 mg 04/06/23 09:00 04/06/23 21:33 Docusate Sodium 100 Mg Capsule PO 100 mg BID MARIN Administration Sodium Chloride 1,000 mls @ 125 mls/hr 04/05/23 05:15 04/05/23 06:31 Sodium Chloride 0.9% 1,000 Ml IV 125 mls/hr .Q8H MARIN Administration Ibuprofen 600 mg 04/05/23 14:41 04/07/23 06:48 Ibuprofen 600 Mg Tablet PO 600 mg Q6H PRN Administration Moderate Pain Ondansetron HCl 4 mg 04/05/23 05:11 Ondansetron Pf 4 Mg/2 Ml Vial IV Q6H PRN Nausea And Vomiting Ondansetron HCl 4 mg 04/05/23 05:11 Ondansetron 4 Mg Rapdis Tablet SL Q6H PRN Nausea And Vomiting Senna 17.2 mg 04/05/23 20:00 Sennosides 8.6 Mg Tablet PO QHS PRN Constipation Simethicone 80 mg 04/05/23 14:41 Simethicone 80 Mg Tab.Chew PO QID PRN Abdominal Distention Temazepam 15 mg 04/05/23 14:41 Temazepam 15 Mg Capsule PO QHS PRN Sleep Witch Cathy/Glycerin 1 pad 04/05/23 14:41 Glycerin/Witch Cathy Pads TOPICAL Q2H PRN Pain Respiratory Oxygen Delivery Method Room Air Oxygen Delivery Method Room Air
--- NOTE | 2023-04-07 09:33 | PC.NURSE ---
0750 RN at bedside assisting with breast feeding. latches on to right breast appropriately and mother verbalizes no complaints of pain. at 0830 fussing and unwilling to go to breast. RN remains at bedside attempting to help latch . at 0930 mother pumping bilateral breasts and quiet under phototherapy lights after being fed formula bottle.
[2023-04-07] MEDS: DOCUSATE SODIUM 100 MG CAPSULE PO (10:16)
[2023-04-07] MEDS: ACETAMINOPHEN 325 MG TABLET 650 MG PO (17:44)
== END 2023-04-07 20:14 | disposition home or self-care (01) | DRG 560 ==
PROVIDERS: Admitting Provider Obstetrics & Gynecology; Visit Provider Obstetrics & Gynecology
DX: O24.424 Gestational diabetes mellitus in childbirth, insulin controlled (principal); O69.81X0 Labor and delivery complicated by cord around neck, without compression, not applicable or unspecified; Z3A.38 38 weeks gestation of pregnancy; Z37.0 Single live birth; O35.2XX0 Maternal care for (suspected) hereditary disease in fetus, not applicable or unspecified; Z14.8 Genetic carrier of other disease; Z87.59 Personal history of other complications of pregnancy, childbirth and the puerperium; Z87.891 Personal history of nicotine dependence; Z83.3 Family history of diabetes mellitus
CPT/HCPCS: 36415; 51702; 59050; 59410; 80307; 85025; 85027; 86850; 86900; 86901; 96374; 96376

== ENCOUNTER 2023-04-12 08:55 | Outpatient (OUT) | payer OTHER, SELFPAY ==
[2023-04-12 13:22] VITALS: BP 124/80; PULSE 88; RESP 18; TEMP 37; O2SAT 98
--- NOTE | 2023-04-12 13:27 | PC.NURSE ---
Arrives for follow up. Pleasant, denies concerns at this time. States does have slight headache that is more intense after feeding at the breast. Discussed hormone shifts with as well and increasing fluids and eating well. States I could use a nap in the afternoon also Encouraged good self care. Verbalized understanding. Independently latches baby deep latch and active suck and swallows noted. Mom relaxed and confident in her skills to breastfeed. No questions at this time.
== END 2023-04-12 13:15 | disposition home or self-care (01) ==
PROVIDERS: Visit Provider Obstetrics & Gynecology
DX: Z39.2 Encounter for routine postpartum follow-up (principal)

== ENCOUNTER 2025-02-21 15:18 | Outpatient (REF) | payer OTHER, SELFPAY ==
[2025-02-23 13:08] LABS: Age Gdln ACOG Testing Note (.); IGP, rfx Aptima HPV ASCU Note (.)
== END 2025-02-21 15:19 | disposition home or self-care (01) ==
LOC: LAB 15:18
PROVIDERS: Visit Provider Obstetrics & Gynecology
DX: Z01.419 Encounter for gynecological examination (general) (routine) without abnormal findings (principal)
CPT/HCPCS: 88175